=== PATIENT | female | born 1990 | race Caucasian/White ===

== ENCOUNTER → 2018-10-10 | Outpatient (CLI) | payer MEDICARE, MEDICAID ==
[~2018-10-10] MED LIST: ACET325T14 PO; DIPH25CA61 PO; DOCU-131 PO; FLUT9.9S NS; HYDR-3241 PO; IBUP-1222 PO; IRON1TAB PO; OXYC-302 PO; PREN1TAB60 PO
[2018-10-10 13:39] LABS: CHLORIDE 112 mmol/L (98-107)
[2018-10-10 13:48] LABS: ANION GAP 5 mmol/L (5-15); CALCIUM 8.8 mg/dL (8.5-10.1); CREATININE 0.76 mg/dL (0.55-1.02)
== END | disposition home or self-care (01) ==
LOC: CFH 08:58
PROVIDERS: ATTEND Psychiatry & Neurology Neurology
DX: N19 Unspecified kidney failure (principal)
CPT/HCPCS: 36415; 80048

== ENCOUNTER 2018-12-06 11:35 | Outpatient (CLI) | payer MEDICARE, MEDICAID ==
[2018-12-06] MEDS ORDERED: GADOBUTROL 10 MMOL/10 ML PFS ONE (12:36)
== END 2018-12-06 23:59 | disposition home or self-care (01) ==
LOC: CFH 11:35
PROVIDERS: ATTEND Psychiatry & Neurology Neurology
DX: G43.009 Migraine without aura, not intractable, without status migrainosus (principal); H93.A2 Pulsatile tinnitus, left ear
CPT/HCPCS: 70553; A9585